=== PATIENT | female | born 1995 | race Caucasian/White ===

== ENCOUNTER 2018-05-29 17:05 | Emergency (ER) | payer BC ==
[2018-05-29 21:25] LABS: ABS Basophils 0.1 10^3/ul (0-0.2); ABS Eosinophils 0.1 10^3/ul (0-0.6); ABS Lymphocytes 2.6 10^3/ul (1.0-4.8); ABS Monocytes 0.9 10^3/ul (0-0.8); ABS Neutrophils 9.4 10^3/ul (1.5-7.7); ABS Nucleated RBC 0 10^3/ul; Hematocrit 40 % (35-47); Hemoglobin 13.3 g/dl (12.0-16.0); Lymphocyte % 19.9 %; Mean Corpuscular HGB Conc 34 g/dl (31-36); Mean Corpuscular Hemoglobin 27 pg (27-31); Mean Corpuscular Volume 81 fL (80-97); Mean Platelet Volume 8.4 fL (7.4-10.4); Nucleated Red Blood Cells % 0.1; Platelet Count 361 10^3/ul (150-450); Red Blood Count 4.86 10^6/ul (4.00-5.40); Red Cell Distribution Width 15 % (10.5-15); White Blood Count 13.2 10^3/ul (3.5-10.8)
[2018-05-29] MEDS ORDERED: ALPRAZolam TAB* 0.25 MG PO ONE (21:47)
[2018-05-29 21:49] LABS: EGFR Non-African American 93.2 (>60)
--- NOTE | 2018-05-29 22:19 | ED ---
Abdominal Pain/Female - History of Current Complaint Chief Complaint: EDChestPainROMI Stated Complaint: CHEST PAIN/SOB Time Seen by Provider: 05/29/18 20:29 Hx Last Menstrual Period: current Pain Intensity: 7 Allergies/Adverse Reactions: Allergies Allergy/AdvReac Type Severity Reaction Status Date / Time amoxicillin Allergy Unknown Verified 05/29/18 17:23 Reaction Details Sulfa (Sulfonamide Allergy Hives Verified 05/29/18 17:23 Antibiotics) Home Medications: Home Medications ALPRAZolam [Alprazolam] 0.5 mg PO Q6HR PRN 05/29/18 [History Confirmed 05/29/18] Amitriptyline HCl 75 mg PO DAILY 05/29/18 [History Confirmed 05/29/18] Escitalopram Oxalate 5 mg PO DAILY 05/29/18 [History Confirmed 05/29/18] Sprintec 28 Day Tablet 1 tab PO DAILY 05/29/18 [History Confirmed 05/29/18] PMH/Surg Hx/FS Hx/Imm Hx Infectious Disease History: No Infectious Disease History: Denies: Traveled Outside the [place] in Last 30 Days - Social History Alcohol Use: None Substance Use Type: Reports: None Smoking Status (MU): Never Smoked Tobacco Physical Exam Vital Signs On Initial Exam: Initial Vitals Temp Pulse Resp BP Pulse Ox 98.5 F 114 16 182/122 97 05/29/18 17:19 05/29/18 17:19 05/29/18 17:19 05/29/18 17:19 05/29/18 17:19 Diagnostics - Vital Signs Vital Signs Temp Pulse Resp BP Pulse Ox 05/29/18 21:00 101 17 175/104 100 05/29/18 20:44 95 32 182/125 100 05/29/18 20:41 93 22 178/112 99 05/29/18 20:28 104 151/121 99 05/29/18 20:26 113 98 05/29/18 19:39 105 20 163/117 100 05/29/18 19:16 98.2 F 94 20 169/108 96 05/29/18 17:19 98.5 F 114 16 182/122 97 - Laboratory Lab Results: Lab Results 05/29/18 05/29/18 05/29/18 Range/Units 21:05 21:05 21:05 WBC 13.2 H (3.5-10.8) 10^3/ul RBC 4.86 (4.00-5.40) 10^6/ul Hgb 13.3 (12.0-16.0) g/dl Hct 40 (35-47) % MCV 81 (80-97) fL MCH 27 (27-31) pg MCHC 34 (31-36) g/dl RDW 15 (10.5-15) % Plt Count 361 (150-450) 10^3/ul MPV 8.4 (7.4-10.4) fL Neut % (Auto) 71.3 % Lymph % (Auto) 19.9 % [place] % (Auto) 7.0 % Eos % (Auto) 1.0 % Baso % (Auto) 0.8 % Absolute Neuts (auto) 9.4 H (1.5-7.7) 10^3/ul Absolute Lymphs (auto) 2.6 (1.0-4.8) 10^3/ul Absolute Monos (auto) 0.9 H (0-0.8) 10^3/ul Absolute Eos (auto) 0.1 (0-0.6) 10^3/ul Absolute Basos (auto) 0.1 (0-0.2) 10^3/ul Absolute Nucleated RBC 0 10^3/ul Nucleated RBC % 0.1 D-Dimer, Quantitative < 200 (Less Than 230) ng/mL Sodium 138 (135-145) mmol/L Potassium 4.1 (3.5-5.0) mmol/L Chloride 103 (101-111) mmol/L Carbon Dioxide 26 (22-32) mmol/L Anion Gap 9 (2-11) mmol/L BUN 14 (6-24) mg/dL Creatinine 0.78 (0.51-0.95) mg/dL Est GFR ( Amer) 112.8 (>60) Est GFR (Non-Af Amer) 93.2 (>60) BUN/Creatinine Ratio 17.9 (8-20) Glucose 96 (70-100) mg/dL Lactic Acid (0.5-2.0) mmol/L Calcium 9.3 (8.6-10.3) mg/dL Total Bilirubin 0.20 (0.2-1.0) mg/dL AST 51 H (13-39) U/L ALT 41 (7-52) U/L Alkaline Phosphatase 97 (34-104) U/L Troponin I 0.00 (<0.04) ng/mL Total Protein 7.4 (6.4-8.9) g/dL Albumin 4.0 (3.2-5.2) g/dL Globulin 3.4 (2-4) g/dL Albumin/Globulin Ratio 1.2 (1-3) 05/29/18 Range/Units 21:05 WBC (3.5-10.8) 10^3/ul RBC (4.00-5.40) 10^6/ul Hgb (12.0-16.0) g/dl Hct (35-47) % MCV (80-97) fL MCH (27-31) pg MCHC (31-36) g/dl RDW (10.5-15) % Plt Count (150-450) 10^3/ul MPV (7.4-10.4) fL Neut % (Auto) % Lymph % (Auto) % [place] % (Auto) % Eos % (Auto) % Baso % (Auto) % Absolute Neuts (auto) (1.5-7.7) 10^3/ul Absolute Lymphs (auto) (1.0-4.8) 10^3/ul Absolute Monos (auto) (0-0.8) 10^3/ul Absolute Eos (auto) (0-0.6) 10^3/ul Absolute Basos (auto) (0-0.2) 10^3/ul Absolute Nucleated RBC 10^3/ul Nucleated RBC % D-Dimer, Quantitative (Less Than 230) ng/mL Sodium (135-145) mmol/L Potassium (3.5-5.0) mmol/L Chloride (101-111) mmol/L Carbon Dioxide (22-32) mmol/L Anion Gap (2-11) mmol/L BUN (6-24) mg/dL Creatinine (0.51-0.95) mg/dL Est GFR ( Amer) (>60) Est GFR (Non-Af Amer) (>60) BUN/Creatinine Ratio (8-20) Glucose (70-100) mg/dL Lactic Acid 1.0 (0.5-2.0) mmol/L Calcium (8.6-10.3) mg/dL Total Bilirubin (0.2-1.0) mg/dL AST (13-39) U/L ALT (7-52) U/L Alkaline Phosphatase (34-104) U/L Troponin I (<0.04) ng/mL Total Protein (6.4-8.9) g/dL Albumin (3.2-5.2) g/dL Globulin (2-4) g/dL Albumin/Globulin Ratio (1-3) Result Diagrams: 05/29/18 21:05 05/29/18 21:05 Lab Statement: Any lab studies that have been ordered have been reviewed, and results considered in the medical decision making process. Discharge - Discharge Plan Referrals: No Primary Care Phys,NOPCP [Primary Care Provider] - - Attestation Statements Document Initiated by Sundar: Yes
--- NOTE | 2018-05-29 22:24 | ED ---
HPI Chest Pain - HPI Summary HPI Summary: A 22 y/o female presents to [facility] with a chief complaint of CP since 04:00 on . The patient reports being on a new control, Sprintec. She has a Hx of HTN for 3 years. She also c/o SOB, palpitations and cough and reports taking mucinex. She denies EtOH use. She has a FHx of cardiac disease, blood clots, HTN, DM hypothyroidism and Cancer. The patient also reports a thyroid issue with a TSH of 6.5. She reports doing EKGs at her school which she discusses with her PCP. She has a current pain of 6/10. She states her BP is usually 140/90 but when having panic attacks is 180/100. She waited before coming into the ED because she thought she may have just been having a panic attack. She denies Fever, Chills, Erythema (eyes), Sore throat, Abdominal pain, Vomiting, Nausea,Dysuria, Hematuria, Myalgia, Edema, Rash and Dizziness. She reports recently driving from [place] and denies EtOH use. - History of Current Complaint Chief Complaint: EDChestPainROMI Time Seen by Provider: 05/29/18 20:29 Hx Obtained From: Patient Hx Last Menstrual Period: current Onset/Duration: Started Hours Ago, Still Present Timing: Constant Initial Severity: Moderate Current Severity: Moderate Pain Intensity: 7 Pain Scale Used: 0-10 Numeric Chest Pain Location: Diffuse Chest Pain Radiates: No Character: Pressure/Squeezing Aggravating Factor(s): Nothing Alleviating Factor(s): Nothing Associated Signs and Symptoms: Positive: Palpitations, Cough. Negative: Abdominal Pain, Vomiting - Allergy/Home Medications Allergies/Adverse Reactions: Allergies Allergy/AdvReac Type Severity Reaction Status Date / Time amoxicillin Allergy Unknown Verified 05/29/18 17:23 Reaction Details Sulfa (Sulfonamide Allergy Hives Verified 05/29/18 17:23 Antibiotics) Home Medications: Home Medications ALPRAZolam [Alprazolam] 0.5 mg PO Q6HR PRN 05/29/18 [History Confirmed 05/29/18] Amitriptyline HCl 75 mg PO DAILY 05/29/18 [History Confirmed 05/29/18] Escitalopram Oxalate 5 mg PO DAILY 05/29/18 [History Confirmed 05/29/18] Sprintec 28 Day Tablet 1 tab PO DAILY 05/29/18 [History Confirmed 05/29/18] PMH/Surg Hx/FS Hx/Imm Hx Infectious Disease History: No Infectious Disease History: Denies: Traveled Outside the [place] in Last 30 Days - Social History Alcohol Use: None Substance Use Type: Reports: None Smoking Status (MU): Never Smoked Tobacco Review of Systems Negative: Fever, Chills Negative: Erythema Negative: Sore Throat Positive: Palpitations, Chest Pain Positive: Shortness Of Breath, Cough Negative: Abdominal Pain, Vomiting, Nausea Negative: dysuria, hematuria Negative: Myalgia, Edema Negative: Rash Neurological: Negative - dizziness All Other Systems Reviewed And Are Negative: Yes Physical Exam - Summary Physical Exam Summary: Constitutional: Well-developed, Well-nourished, Alert. (-) Distressed Skin: Warm, Dry HENT: Normocephalic; Atraumatic Eyes: Conjunctiva normal Neck: Musculoskeletal ROM normal neck. (-) JVD, (-) Stridor, (-) Tracheal deviation Cardio: Rhythm regular, rate normal, Heart sounds normal; Intact distal pulses; The pedal pulses are 2+ and symmetric. Radial pulses are 2+ and symmetric. (-) Murmur Pulmonary/Chest wall: Effort normal. (-) Respiratory distress, (-) Wheezes, (-) Rales Abd: Soft, (-) epigastric tenderness, (-) Distension, (-) Guarding, (-) Rebound Musculoskeletal: (-) Edema Lymph: (-) Cervical adenopathy Neuro: Alert, Oriented x3 Psych: Mood and affect Normal Triage Information Reviewed: Yes Vital Signs On Initial Exam: Initial Vitals Temp Pulse Resp BP Pulse Ox 98.5 F 114 16 182/122 97 05/29/18 17:19 05/29/18 17:19 05/29/18 17:19 05/29/18 17:19 05/29/18 17:19 Vital Signs Reviewed: Yes Diagnostics - Vital Signs Vital Signs Temp Pulse Resp BP Pulse Ox 05/29/18 22:23 20 05/29/18 21:00 101 17 175/104 100 05/29/18 20:44 95 32 182/125 100 05/29/18 20:41 93 22 178/112 99 05/29/18 20:28 104 151/121 99 05/29/18 20:26 113 98 05/29/18 19:39 105 20 163/117 100 05/29/18 19:16 98.2 F 94 20 169/108 96 05/29/18 17:19 98.5 F 114 16 182/122 97 - Laboratory Lab Results: Lab Results 05/29/18 05/29/18 05/29/18 Range/Units 21:05 21:05 21:05 WBC 13.2 H (3.5-10.8) 10^3/ul RBC 4.86 (4.00-5.40) 10^6/ul Hgb 13.3 (12.0-16.0) g/dl Hct 40 (35-47) % MCV 81 (80-97) fL MCH 27 (27-31) pg MCHC 34 (31-36) g/dl RDW 15 (10.5-15) % Plt Count 361 (150-450) 10^3/ul MPV 8.4 (7.4-10.4) fL Neut % (Auto) 71.3 % Lymph % (Auto) 19.9 % [place] % (Auto) 7.0 % Eos % (Auto) 1.0 % Baso % (Auto) 0.8 % Absolute Neuts (auto) 9.4 H (1.5-7.7) 10^3/ul Absolute Lymphs (auto) 2.6 (1.0-4.8) 10^3/ul Absolute Monos (auto) 0.9 H (0-0.8) 10^3/ul Absolute Eos (auto) 0.1 (0-0.6) 10^3/ul Absolute Basos (auto) 0.1 (0-0.2) 10^3/ul Absolute Nucleated RBC 0 10^3/ul Nucleated RBC % 0.1 D-Dimer, Quantitative < 200 (Less Than 230) ng/mL Sodium 138 (135-145) mmol/L Potassium 4.1 (3.5-5.0) mmol/L Chloride 103 (101-111) mmol/L Carbon Dioxide 26 (22-32) mmol/L Anion Gap 9 (2-11) mmol/L BUN 14 (6-24) mg/dL Creatinine 0.78 (0.51-0.95) mg/dL Est GFR ( Amer) 112.8 (>60) Est GFR (Non-Af Amer) 93.2 (>60) BUN/Creatinine Ratio 17.9 (8-20) Glucose 96 (70-100) mg/dL Lactic Acid (0.5-2.0) mmol/L Calcium 9.3 (8.6-10.3) mg/dL Total Bilirubin 0.20 (0.2-1.0) mg/dL AST 51 H (13-39) U/L ALT 41 (7-52) U/L Alkaline Phosphatase 97 (34-104) U/L Troponin I 0.00 (<0.04) ng/mL Total Protein 7.4 (6.4-8.9) g/dL Albumin 4.0 (3.2-5.2) g/dL Globulin 3.4 (2-4) g/dL Albumin/Globulin Ratio 1.2 (1-3) 05/29/18 Range/Units 21:05 WBC (3.5-10.8) 10^3/ul RBC (4.00-5.40) 10^6/ul Hgb (12.0-16.0) g/dl Hct (35-47) % MCV (80-97) fL MCH (27-31) pg MCHC (31-36) g/dl RDW (10.5-15) % Plt Count (150-450) 10^3/ul MPV (7.4-10.4) fL Neut % (Auto) % Lymph % (Auto) % [place] % (Auto) % Eos % (Auto) % Baso % (Auto) % Absolute Neuts (auto) (1.5-7.7) 10^3/ul Absolute Lymphs (auto) (1.0-4.8) 10^3/ul Absolute Monos (auto) (0-0.8) 10^3/ul Absolute Eos (auto) (0-0.6) 10^3/ul Absolute Basos (auto) (0-0.2) 10^3/ul Absolute Nucleated RBC 10^3/ul Nucleated RBC % D-Dimer, Quantitative (Less Than 230) ng/mL Sodium (135-145) mmol/L Potassium (3.5-5.0) mmol/L Chloride (101-111) mmol/L Carbon Dioxide (22-32) mmol/L Anion Gap (2-11) mmol/L BUN (6-24) mg/dL Creatinine (0.51-0.95) mg/dL Est GFR ( Amer) (>60) Est GFR (Non-Af Amer) (>60) BUN/Creatinine Ratio (8-20) Glucose (70-100) mg/dL Lactic Acid 1.0 (0.5-2.0) mmol/L Calcium (8.6-10.3) mg/dL Total Bilirubin (0.2-1.0) mg/dL AST (13-39) U/L ALT (7-52) U/L Alkaline Phosphatase (34-104) U/L Troponin I (<0.04) ng/mL Total Protein (6.4-8.9) g/dL Albumin (3.2-5.2) g/dL Globulin (2-4) g/dL Albumin/Globulin Ratio (1-3) Result Diagrams: 05/29/18 21:05 05/29/18 21:05 Lab Statement: Any lab studies that have been ordered have been reviewed, and results considered in the medical decision making process. - Radiology CXR Radiology Interpretation Completed By: ED Physician Summary of Radiographic Findings: no acute disease. Pending official radiology report. - EKG 17:26 Cardiac Rate: Tachycardia - 101 bpm EKG Rhythm: Sinus Rhythm Summary of EKG Findings: no STEMI. Chest Pain Course/Dx - Course Course Of Treatment: A 22 y/o female presents to [facility] with a chief complaint of CP since 04:00 on 05/29/18. The patient reports being on a new control , Sprintec. She has a Hx of HTN for 3 years. She also c/o SOB, palpitations and cough and reports taking mucinex. She denies EtOH use. She has a FHx of cardiac disease, blood clots, HTN, DM hypothyroidism and Cancer. The patient also reports a thyroid issue with a TSH of 6.5. She reports doing EKGs at her school which she discusses with her PCP. She has a current pain of 6/10. She states her BP is usually 140/90 but when having panic attacks is 180/100. She waited before coming into the ED because she thought she may have just been having a panic attack. She denies Fever, Chills, Erythema (eyes), Sore throat, Abdominal pain, Vomiting, Nausea,Dysuria, Hematuria, Myalgia, Edema, Rash and Dizziness. She reports recently driving from [place] and denies EtOH use EKG showed sinus tachycardia at 101 bpm. CXR showed no acute disease. Patient has multiple risk factors for PE. Despite negaitve D-dimer we will give her a chest CTA given her control, FHx and recent travel. The patient will be signed out to Dr. Schmid at shift change pending CTA chest results. Dx: Chest pain. - Diagnoses Provider Diagnoses: Chest pain Discharge - Sign-Out/Discharge Documenting (check all that apply): Sign-Out Patient Signing out patient TO: Srinivas Schmid - Discharge Plan Condition: Stable Referrals: No Primary Care Phys,NOPCP [Primary Care Provider] - - Attestation Statements Document Initiated by Scribe: Yes Documenting Scribe: Bam Fierro Provider For Whom Scribe is Documenting (Include Credential): Jett Harry MD Scribe Attestation: IBam, scribed for Jett Harry MD on 05/29/18 at 2346.
--- NOTE | 2018-05-29 23:29 | ED ---
Progress - Progress Note Progress Note: This patient was signed out from Dr. Harry on shift change awaiting CTA, labs, and disposition. CTA chest reveals, No acute pulmonary embolism. Hepatic steatosis. ED physician has reviewed this report. The patient will be discharged and instructed to f/u with PCP. Course/Dx - Course Course Of Treatment: This patient was signed out from Dr. Harry on shift change awaiting CTA, labs, and disposition. CTA chest reveals, No acute pulmonary embolism. Hepatic steatosis. ED physician has reviewed this report. The patient will be discharged and instructed to f/u with PCP. - Diagnoses Provider Diagnoses: Chest pain, HTN (hypertension) Discharge - Sign-Out/Discharge Documenting (check all that apply): Patient Departure, Receiving Sign-Out Receiving patient FROM: Jett Harry - Discharge Plan Condition: Stable Disposition: HOME Prescriptions: Lisinopril TAB* [Prinivil TAB 10 MG*] 10 mg PO DAILY #30 tab Patient Education Materials: Chest Pain (ED), Heart Healthy Diet (DC), Hypertension (ED) Referrals: [facility] [Outside] [facility]ERR[facility] [Outside] Additional Instructions: Follow up with your primary care physician in 1-3 days. RETURN TO THE EMERGENCY DEPARTMENT FOR CHANGING OR WORSENING SYMPTOMS. - Billing Disposition and Condition Condition: STABLE Disposition: Home - Attestation Statements Document Initiated by Sundar: Yes Documenting Scribe: Robert Garcia Provider For Whom Sundar is Documenting (Include Credential): Srinivas Schmid MD [place] Attestation: Robert Talamantes , scribed for Srinivas Schmid MD on 05/30/18 at 0625. Scribe Documentation Reviewed: Yes Provider Attestation: The documentation as recorded by the Robert azevedo accurately reflects the service I personally performed and the decisions made by Jasmin macedo MD Status of [place] Document: Viewed
[2018-05-29] MEDS ORDERED: Iohexol 350* (CONTRAST) 500 ML MDV IV ONE (23:42)
[2018-05-30 01:16] VITALS: BP 141/98
== END 2018-05-30 01:15 | disposition home or self-care (01) ==
LOC: ED 17:05
DX: R07.9 Chest pain, unspecified (principal); I10 Essential (primary) hypertension
CPT/HCPCS: 36415; 71046; 71275; 80053; 83605; 84484; 85025; 85379; 93005; 99284; A9270-GY; Q9967